=== PATIENT | female | born 1985 | race Caucasian/White ===

== ENCOUNTER 2018-04-30 10:36 | Emergency (ER) | payer SELFPAY ==
[2018-04-30 11:45] LABS: ABS Basophils 0.1 10^3/ul (0-0.2); ABS Eosinophils 0 10^3/ul (0-0.6); ABS Lymphocytes 2.2 10^3/ul (1.0-4.8); ABS Monocytes 0.8 10^3/ul (0-0.8); ABS Neutrophils 6.1 10^3/ul (1.5-7.7); ABS Nucleated RBC 0 10^3/ul; Eosinophil % 0.5 % (0-6); Hematocrit 40 % (35-47); Hemoglobin 13.7 g/dl (12.0-16.0); Mean Corpuscular HGB Conc 35 g/dl (31-36); Mean Corpuscular Hemoglobin 32 pg (27-31); Mean Corpuscular Volume 91 fL (80-97); Mean Platelet Volume 7.9 um3 (7.4-10.4); Nucleated Red Blood Cells % 0.1; Platelet Count 240 10^3/ul (150-450); Red Blood Count 4.34 10^6/ul (4.00-5.40); Red Cell Distribution Width 13 % (10.5-15); White Blood Count 9.2 10^3/ul (3.5-10.8)
[2018-04-30 12:41] LABS: Urine Appearance Cloudy; Urine Blood Negative (Negative); Urine Color Yellow; Urine Ketones Negative (Negative); Urine Protein 1+(30 mg/dL) (Negative); Urine Specific Gravity 1.025 (1.010-1.030); Urine Urobilinogen Negative (Negative)
[2018-04-30] MEDS ORDERED: Divalproex ER TAB(*) 500 MG PO ONE (13:03)
[2018-04-30 18:01] VITALS: BP 111/79
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
--- NOTE | 2018-05-02 07:27 | ED ---
Progress - Progress Note Progress Note: Patient's preliminary urine culture reveals 25-50,000 Enterobacter cloacae. She was started on Macrobid. Final results pending. - Consult/PCP Time Called: 14:10 Course/Dx - Course Course Of Treatment: Ms Frances was found to have an equivocal urine and her mother requested that she be treated for that as she has shown aggressive behavior in the past with urinary tract infections. - Diagnoses Provider Diagnoses: UTI (urinary tract infection), Mood disorder Discharge - Sign-Out/Discharge Documenting (check all that apply): Post-Discharge Follow Up - Discharge Plan Condition: Stable Disposition: HOME Prescriptions: Nitrofurantoin Macrocrystals* [Macrodantin 100 mg*] 100 mg PO BID #6 cap Patient Education Materials: Urinary Tract Infection in Women (ED), Mood Disorders (ED) Referrals: No Primary Care Phys,NOPCP [Primary Care Provider] - - Billing Disposition and Condition Condition: STABLE Disposition: Home
--- NOTE | 2018-05-03 08:13 | ED ---
Progress - Progress Note Progress Note: Patient's preliminary urine culture reveals 25-50,000 Enterobacter cloacae. She was started on Macrobid. Final results pending. UPDATE: The patient's final urine culture reveals sensitivity to Macrobid. No change in treatment at this time. - Consult/PCP Time Called: 14:10 Course/Dx - Course Course Of Treatment: Ms Frances was found to have an equivocal urine and her mother requested that she be treated for that as she has shown aggressive behavior in the past with urinary tract infections. - Diagnoses Provider Diagnoses: UTI (urinary tract infection), Mood disorder Discharge - Sign-Out/Discharge Documenting (check all that apply): Post-Discharge Follow Up - Discharge Plan Condition: Stable Disposition: HOME Prescriptions: Nitrofurantoin Macrocrystals* [Macrodantin 100 mg*] 100 mg PO BID #6 cap Patient Education Materials: Urinary Tract Infection in Women (ED), Mood Disorders (ED) Referrals: No Primary Care Phys,NOPCP [Primary Care Provider] - - Billing Disposition and Condition Condition: STABLE Disposition: Home
== END 2018-04-30 17:15 | disposition home or self-care (01) ==
LOC: ED 10:36
DX: F39 Unspecified mood [affective] disorder (principal); N39.0 Urinary tract infection, site not specified; F79 Unspecified intellectual disabilities
CPT/HCPCS: 36415; 80053; 80164; 80307; 80320; 80329; 81003; 81015; 84443; 84702; 85025; 87077; 87086; 87186; 99284; G0480

== ENCOUNTER 2019-01-05 20:51 | Inpatient (IN) | payer OTHER ==
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
[2019-01-05 21:34] LABS: ABS Basophils 0.1 10^3/ul (0-0.2); ABS Eosinophils 0.1 10^3/ul (0-0.6); ABS Lymphocytes 3.6 10^3/ul (1.0-4.8); ABS Monocytes 0.8 10^3/ul (0-0.8); ABS Neutrophils 4.6 10^3/ul (1.5-7.7); ABS Nucleated RBC 0 10^3/ul; Eosinophil % 1.3 %; Hematocrit 39 % (33-41); Hemoglobin 13.2 g/dL (12.0-16.0); Mean Corpuscular HGB Conc 34 g/dL (31-36); Mean Corpuscular Hemoglobin 31 pg (27-31); Mean Corpuscular Volume 92 fL (80-97); Mean Platelet Volume 7.5 fL (7.4-10.4); Nucleated Red Blood Cells % 0.1; Platelet Count 184 10^3/uL (150-450); Red Blood Count 4.22 10^6 /uL (3.70-4.87); Red Cell Distribution Width 13 % (10.5-15); White Blood Count 9.2 10^3/uL (3.5-10.8)
[2019-01-05 21:43] LABS: Urine Appearance Cloudy; Urine Bacteria 1+ (Absent); Urine Bilirubin Negative (Negative); Urine Blood Negative (Negative); Urine Color Amber; Urine Glucose Negative (Negative); Urine Ketones Trace (Negative); Urine Nitrite Negative (Negative); Urine Protein 2+(100 mg/dL) (Negative); Urine Red Blood Cell Absent (Absent); Urine Squamous Epithelial Cell Present (Absent); Urine Urobilinogen Negative (Negative); Urine White Blood Cell 1+(6-10/hpf) (Absent)
[2019-01-05 21:44] LABS: Barbiturates Urine Screen None Detected (None Detect); Benzodiazepine Urine Screen None Detected (None Detect); Urine Cannabinoids Screen None Detected (None Detect)
[2019-01-05] MEDS ORDERED: Lurasidone(*) 60 MG TAB PO ONE (21:46)
[2019-01-05] MEDS ORDERED: Lurasidone(*) 20 MG TAB PO ONE (21:46)
[2019-01-05 21:53] LABS: ALT 28 U/L (7-52); AST 29 U/L (13-39); Albumin 4.1 g/dL (3.2-5.2); Albumin/Globulin Ratio 1.4 (1-3); Alkaline Phosphatase 39 U/L (34-104); Anion Gap 3 mmol/L (2-11); BUN/Creatinine Ratio 15.1 (8-20); Blood Urea Nitrogen 11 mg/dL (6-24); CO2 Carbon Dioxide 27 mmol/L (22-32); Calcium 9.1 mg/dL (8.6-10.3); Chloride 106 mmol/L (101-111); EGFR African American 111.8 (>60); EGFR Non-African American 92.4 (>60); Globulin 2.9 g/dL (2-4); Glucose 139 mg/dL (70-100); Sodium 136 mmol/L (135-145)
[2019-01-05 21:59] LABS: HCG Pregnancy < 0.60 mIU/mL
[2019-01-05 22:01] LABS: Acetaminophen < 15 mcg/mL; Alcohol < 10 mg/dL (<10); Salicylate < 2.50 mg/dL (<30)
[2019-01-06] MEDS ORDERED: Acetaminophen TAB* 325 MG PO PRN (05:36)
[2019-01-06] MEDS ORDERED: Al Hydrox/Mg Hydrox/Simet LIQ* 30 ML UDC PO PRN (05:36)
[2019-01-06] MEDS ORDERED: Zolpidem TAB* 10 MG PO ONE (06:00)
[2019-01-06] MEDS: Multivitamins/Minerals TAB PO SCH (11:12)
[2019-01-06] MEDS: Divalproex ER TAB(*) 500 MG PO SCH (11:13)
[2019-01-06] MEDS: ETHINYL ESTRADIOL PO SCH (11:15)
[2019-01-06] MEDS: LEVONORGESTREL PO SCH (11:15)
[2019-01-06] MEDS ORDERED: Zolpidem TAB* 10 MG PO SCH (21:00)
[2019-01-06] MEDS: Lurasidone(*) 20 MG TAB PO SCH (21:28)
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
[2019-01-07] MEDS: Divalproex ER TAB(*) 500 MG PO SCH (07:59)
[2019-01-07] MEDS: Multivitamins/Minerals TAB PO SCH (07:59)
[2019-01-07] MEDS: LEVONORGESTREL PO SCH (08:39)
[2019-01-07] MEDS: ETHINYL ESTRADIOL PO SCH (08:39)
--- NOTE | 2019-01-07 13:55 | PN ---
Subjective - Subjective Date of Service: 01/07/19 Service Type: 40078 Hosp care 35 min high complexity Subjective: Met with patient and her parents, Kassy and Harsh, during visiting hours. Parents report Latuda dose has been decreased due to concerns of tremors and drooling. They reports she is rigid with routines at baseline; however, she has been more demanding and agitated. The family recently returned from [place] due to patient's maternal aunt's . Aunt Fabiana was close to Connor and often traveled with the family. Connor is tearful at times during conversation. She endorses difficulty sleeping and states "I don't like night. " She reports having vivid and scary dreams. Kassy reports patient tends to be more irritable during week of menses, which is currently. Connor endorses being more angry with her mother but declines to elaborate. Patient agrees to trial prazosin for sleep/nightmares. She also agrees to obtain blood work in the am. Objective - Appearance Appearance: Obese Dysmorphic Features: Yes Hygiene: Mal-odorous Grooming: Fairly Well Kept - Behavior Psychomotor Activities: Normal Exhibits Abnormal Movement: No - Attitude and Relatedness Attitude and Relatedness: Cooperative Eye Contact: Fair - Speech Quality: Unpressured Latencies: Normal Quantity: Terse - Mood Patient's Decription of Mood: "Anxious" - Affect Observed Affect: Tearful Affect Consistent with: Dysphoria - Thought Process Patient's Thought Process: Coherent, Circumstantial Thought Content: No Passive Wish, No Suicidal Planning, No Homicidal Ideation, No Paranoid Ideation - Sensorium Experiencing Hallucinations: No, Sensorium is Clear Type of Hallucinations: Visual: No, Auditory: No, Command: No - Level of Consciousness Level of Consciousness: Alert Orientation: Yes Intact, Yes Orientated to Time, Yes Orientated to Place, Yes Orientated to Person - Impulse Control Impulse Control: Poor - Insight and Judgement Insight and Judgement: Poor - Group Participation Particating in Group Activities: Yes - Medication Management Medication Management Adherence: Yes Assessment - Assessment Merits Inpatient Hospitalization: For Immediate Safety, For Stabilization Inpatient DSM-V Dx: F31.62 - bipolar I d/o, mixed state Clinical Impression: 33yo wf with history of intellectual disability and bipolar I d/o who presented to ED due to delusional statements, homicidal ideation and aggression in the home. She merits hospitalization for immediate safety and stabilization. Plan - Plan Treatment Plan: Name: CONNOR PANG Birthdate: 1985 [id number] continue acute intensive psychiatric treatment. may decrease to q30min obs and allow staff pass. trial prazosin at bedtime, MARYANN jane. continue other medications. obtain EKG and fasting blood work in AM: va level, hgba1c, lipid panel. obtain EKG. discharge planning to include family and outpatient providers. Continued Medication Management: Start Medication Medications: Current Medications Acetaminophen (Tylenol Tab*) 650 mg PO Q4H PRN PRN Reason: PAIN; OR TEMP >101 Al Hydrox/Mg Hydrox/Simethicone (Maalox Plus*) 30 ml PO Q4H PRN PRN Reason: INDIGESTION Divalproex Sodium (Depakote Er Tab(*)) 1,500 mg PO QAM [facility] Last Admin: 01/07/19 07:59 Dose: 1,500 mg Lurasidone HCl (Latuda) 10 mg PO BEDTIME [facility] Last Admin: 01/06/19 21:28 Dose: 10 mg Multivitamins/Minerals (Theragran/Minerals Tab*) 1 tab PO DAILY [facility] Last Admin: 01/07/19 07:59 Dose: 1 tab Nft: Lessina-28 (Tablet) 1 dose PO DAILY [facility] Last Admin: 01/07/19 08:39 Dose: Not Given prazosin 1mg qhs - Discharge Plan Discharge Plan: Inpatient Hospitalization [facility]
[2019-01-07] MEDS ORDERED: Prazosin CAP* 1 MG PO SCH (21:00)
[2019-01-07] MEDS: Lurasidone(*) 20 MG TAB PO SCH (21:52)
[2019-01-08 08:16] LABS: HDL Cholesterol 30.5 mg/dL
[2019-01-08 08:39] LABS: Free T4 0.61 ng/dL (0.61-1.12)
[2019-01-08] MEDS: LEVONORGESTREL PO SCH (10:09)
[2019-01-08] MEDS: Divalproex ER TAB(*) 500 MG PO SCH (10:09)
[2019-01-08] MEDS: ETHINYL ESTRADIOL PO SCH (10:09)
[2019-01-08] MEDS: Multivitamins/Minerals TAB PO SCH (10:09)
--- NOTE | 2019-01-08 16:43 | PN ---
Subjective - Subjective Date of Service: 01/08/19 Service Type: [id number] Hosp care 25 min moderate complexity Subjective: Patient is euthymic and conversational upon approach. Her bed is very well made and her room is tidy. She offers to show her journal and describes writing about her aunts who have . She endorses anxiety about her parent's mortality and specifically asks "what will happen if they before the longterm?" She reports sleeping well and denies having had bad dreams. According to staff, she slept approx 4 hours. She reports being fearful of "being here forever" and is assured of discharge planning this week. She states she want to leave "monday because I have basketball." Objective - Appearance Appearance: Obese Dysmorphic Features: No Hygiene: Normal Grooming: Well Kept - Behavior Psychomotor Activities: Normal Exhibits Abnormal Movement: No - Attitude and Relatedness Attitude and Relatedness: Cooperative Eye Contact: Good - Speech Quality: Unpressured Latencies: Normal Quantity: Appropriate - Mood Patient's Decription of Mood: "Anxious" - Affect Observed Affect: Good Affect Consistent with: Euthymia - Thought Process Patient's Thought Process: Coherent Thought Content: No Passive Wish, No Suicidal Planning, No Homicidal Ideation, No Paranoid Ideation - Sensorium Experiencing Hallucinations: No, Sensorium is Clear Type of Hallucinations: Visual: No, Auditory: No, Command: No - Level of Consciousness Level of Consciousness: Alert Orientation: Yes Intact, Yes Orientated to Time, Yes Orientated to Place, Yes Orientated to Person - Impulse Control Impulse Control: Intact - Insight and Judgement Insight and Judgement: Fair - Group Participation Particating in Group Activities: Yes - Medication Management Medication Management Adherence: Yes Assessment - Assessment Merits Inpatient Hospitalization: For Immediate Safety, For Stabilization, For Discharge Planning Inpatient DSM-V Dx: F31.62 - bipolar I d/o, mixed state Clinical Impression: 33yo wf with history of intellectual disability and bipolar I d/o who presented to ED due to delusional statements, homicidal ideation and aggression in the home. She merits hospitalization for immediate safety and stabilization. Plan - Plan Treatment Plan: Name: CONNOR PANG Birthdate: 1985 [id number] continue acute intensive psychiatric treatment. may decrease to q30min obs and allow staff pass. trial prazosin at bedtime, MARYANN jane. continue other medications. discharge planning to include family and outpatient providers. Continued Medication Management: Start Medication Medications: Current Medications Acetaminophen (Tylenol Tab*) 650 mg PO Q4H PRN PRN Reason: PAIN; OR TEMP >101 Al Hydrox/Mg Hydrox/Simethicone (Maalox Plus*) 30 ml PO Q4H PRN PRN Reason: INDIGESTION Divalproex Sodium (Depakote Er Tab(*)) 1,500 mg PO QAM [facility] Last Admin: 01/08/19 10:09 Dose: 1,500 mg Lurasidone HCl (Latuda) 10 mg PO BEDTIME DEANNE Last Admin: 01/07/19 21:52 Dose: 10 mg Multivitamins/Minerals (Theragran/Minerals Tab*) 1 tab PO DAILY DEANNE Last Admin: 01/08/19 10:09 Dose: 1 tab Nft: Lessina-28 (Tablet) 1 dose PO DAILY [facility] Last Admin: 01/08/19 10:09 Dose: Not Given Prazosin HCl (Minipress Cap*) 1 mg PO BEDTIME [facility] Last Admin: 01/07/19 21:52 Dose: 1 mg - Discharge Plan Discharge Plan: Inpatient Hospitalization Outpatient Program: [facility]
[2019-01-08] MEDS: Lurasidone(*) 20 MG TAB PO SCH (20:39)
[2019-01-08] MEDS ORDERED: Prazosin CAP* 1 MG PO SCH (21:00)
[2019-01-09 08:18] VITALS: BP 111/66
[2019-01-09] MEDS: Divalproex ER TAB(*) 500 MG PO SCH (09:46)
[2019-01-09] MEDS: Multivitamins/Minerals TAB PO SCH (09:46)
[2019-01-09] MEDS: ETHINYL ESTRADIOL PO SCH (09:47)
[2019-01-09] MEDS: LEVONORGESTREL PO SCH (09:47)
[2019-01-09] MEDS ORDERED: Sulfamethox/Trimethoprim DS 800/160* TAB PO SCH (11:00)
[2019-01-09] MEDS ORDERED: Phenazopyridine TAB* 100 MG PO SCH (14:00)
[2019-01-09] MEDS ORDERED: Lurasidone(*) 20 MG TAB PO SCH (21:00)
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
== END 2019-01-09 13:45 | disposition home or self-care (01) | DRG 753 ==
LOC: ED 20:51 → BSU 01-06 02:35
PROVIDERS: ADMIT Psychiatry & Neurology Psychiatry; ATTEND Psychiatry & Neurology Psychiatry
DX: F31.62 Bipolar disorder, current episode mixed, moderate (principal); F79 Unspecified intellectual disabilities; R45.850 Homicidal ideations; E66.9 Obesity, unspecified; Z78.1 Physical restraint status; Z68.33 Body mass index [BMI] 33.0-33.9, adult
CPT/HCPCS: 36415; 80053; 80061; 80164; 80307; 80320; 80329; 81003; 81015; 83036; 84439; 84443; 84702; 85025; 87086; 99222; 99232; 99233; 99238; 99284; A9270-GY; G0480

== ENCOUNTER 2021-12-22 04:27 | Inpatient (IN) ==
[2021-12-22 05:07] LABS: ABS Eosinophils 0.1 10^3/ul (0-0.6); ABS Lymphocytes 3.3 10^3/ul (1.0-4.8); ABS Monocytes 0.7 10^3/ul (0-0.8); ABS Neutrophils 2.7 10^3/ul (1.5-7.7); Eosinophil % 1.1 %; Hematocrit 42 % (35-47); Hemoglobin 14.2 g/dL (12.0-16.0); Lymphocyte % 48.2 %; Mean Corpuscular HGB Conc 34 g/dL (31-36); Mean Corpuscular Hemoglobin 31 pg (27-31); Mean Corpuscular Volume 91 fL (80-97); Nucleated Red Blood Cells % 0.1; Platelet Count 224 10^3/uL (150-450); Red Blood Count 4.61 10^6 /uL (3.70-4.87); Red Cell Distribution Width 13 % (10-15); White Blood Count 6.8 10^3/uL (3.5-10.8)
[2021-12-22 05:45] LABS: Albumin 4.6 g/dL (3.2-5.2); Anion Gap 6 mmol/L (2-11); CO2 Carbon Dioxide 28 mmol/L (22-32); Calcium 9.6 mg/dL (8.6-10.3); Chloride 105 mmol/L (101-111); Sodium 139 mmol/L (135-145)
[2021-12-22 05:52] LABS: ALT 38 U/L (7-52); AST 31 U/L (13-39); Acetaminophen < 15 mcg/mL; Albumin/Globulin Ratio 1.6 (1-3); Alcohol, S < 13 mg/dL (<13); Alkaline Phosphatase 42 U/L (35-149); Blood Urea Nitrogen 12 mg/dL (6-24); Globulin 2.9 g/dL (2-4); Glucose 104 mg/dL (70-100); Salicylate < 2.50 mg/dL (<30); Total Protein 7.5 g/dL (6.4-8.9); eGFR CKD-EPI 113.6 (>60)
[2021-12-22 06:34] LABS: TSH Ultra Thyroid Stim Horm 5.34 mcIU/mL (0.34-5.60)
[2021-12-22 07:49] LABS: Urine Appearance Clear; Urine Bilirubin Negative (Negative); Urine Blood Negative (Negative); Urine Color Straw; Urine Glucose Negative (Negative); Urine Ketones Negative (Negative); Urine Nitrite Negative (Negative); Urine Protein Negative (Negative); Urine Specific Gravity 1.002 (1.002-1.030); Urine Urobilinogen Negative (Negative)
[2021-12-22 07:55] LABS: Urine Benzodiazepine Screen None Detected (None Detect); Urine Cannabinoids Screen None Detected (None Detect); Urine Opiates Screen None Detected (None Detect)
[2021-12-23] MEDS: Multivitamins/Minerals TAB PO SCH (07:46)
[2021-12-23] MEDS: SRONYX PO SCH (09:32)
[2021-12-24] MEDS: Multivitamins/Minerals TAB PO SCH (09:28)
[2021-12-24] MEDS: SRONYX PO SCH (09:29)
[2021-12-25 08:19] LABS: HDL Cholesterol 36.9 mg/dL
[2021-12-25] MEDS: SRONYX PO SCH (09:30)
[2021-12-25] MEDS: Multivitamins/Minerals TAB PO SCH (09:30)
[2021-12-25] MEDS: Al Hydrox/Mg Hydrox/Simet LIQ 30 ML UDC PO PRN (18:45)
[2021-12-26] MEDS: Multivitamins/Minerals TAB PO SCH (08:32)
[2021-12-26] MEDS: SRONYX PO SCH (08:34)
[2021-12-27] MEDS: Multivitamins/Minerals TAB PO SCH (10:06)
[2021-12-27] MEDS: SRONYX PO SCH (10:06)
[2021-12-28] MEDS: Multivitamins/Minerals TAB PO SCH (10:09)
[2021-12-28] MEDS: SRONYX PO SCH (10:10)
[2021-12-28] MEDS: Al Hydrox/Mg Hydrox/Simet LIQ 30 ML UDC PO PRN (22:25)
[2021-12-29] MEDS: Multivitamins/Minerals TAB PO SCH (09:36)
[2021-12-29] MEDS: SRONYX PO SCH (09:36)
[2021-12-30 08:50] VITALS: BP 104/75
[2021-12-30] MEDS: Multivitamins/Minerals TAB PO SCH (10:19)
[2021-12-30] MEDS: SRONYX PO SCH (10:19)
== END 2021-12-30 13:00 | disposition home or self-care (01) | DRG 885 ==
LOC: ED 04:27 → BSU 17:15
PROVIDERS: ADMIT Psychiatry & Neurology Psychiatry; ATTEND Psychiatry & Neurology Psychiatry

== ENCOUNTER 2024-08-08 18:12 | Observation (INO) ==
[2024-08-08 19:03] LABS: ABS Basophils 0.1 10^3/uL (0.0-0.1); ABS Lymphocytes 1.8 10^3/uL (1.0-4.8); ABS Monocytes 0.8 10^3/uL (0.0-0.9); ABS Neutrophils 6.7 10^3/uL (1.5-7.6); Eosinophil % 0.4 %; Hematocrit 36.6 % (35-45); Hemoglobin 12.7 g/dL (11.5-14.3); Lymphocyte % 19.2 %; Mean Corpuscular Hemoglobin 31.1 pg (27-33); Mean Corpuscular Hgb Conc 34.7 g/dL (31-36); Mean Corpuscular Volume 89.6 fL (80-97); Mean Platelet Volume 7.5 fL (7.5-11.2); Platelet Count 358 10^3/uL (150-450); Red Blood Count 4.08 10^6/uL (3.63-4.92); Red Cell Distribution Width 12.2 % (12-17); White Blood Count 9.4 10^3/uL (3.8-11.8)
[2024-08-08 19:43] LABS: ALT 63 U/L (7-52); AST 34 U/L (13-39); Albumin 4.7 g/dL (3.2-5.2); Alkaline Phosphatase 51 U/L (35-149); Anion Gap 9 mmol/L (2-16); Blood Urea Nitrogen 7 mg/dL (6-24); C Reactive Protein 1.52 mg/L (<8.01); CO2 Carbon Dioxide 27 mmol/L (22-32); Calcium 9.8 mg/dL (8.6-10.3); Chloride 102 mmol/L (101-111); Creatinine, Serum 0.82 mg/dL (0.51-0.95); Globulin 2.4 g/dL (2-4); Glucose 109 mg/dL (70-100); Potassium 3.7 mmol/L (3.5-5.0); Sodium 138 mmol/L (135-145); Total Bilirubin 0.5 mg/dL (0.2-1.0); Total Protein 7.1 g/dL (6.4-8.9); eGFR CKD-EPI 93.8 (>60)
[2024-08-08 19:50] LABS: HCG Pregnancy < 0.60 mIU/mL
[2024-08-08] MEDS: Glycerin ADULT 2.4 gm SUPP PR ONE (19:57)
[2024-08-08] MEDS: Lactated Ringers 1000 ml BAG 1,000 ML IV ONE (20:01)
[2024-08-08 20:04] LABS: Activated Partial Thrombo Time 27.6 seconds (26.0-38.0); INR 1.06 (0.85-1.14)
[2024-08-08 21:09] LABS: High Sensitivity Troponin 1 Hr 10 pg/mL (<15)
[2024-08-08 21:38] LABS: Urine Appearance Clear; Urine Bilirubin Negative (Negative); Urine Blood Negative (Negative); Urine Color Light-Yellow; Urine Glucose Negative (Negative); Urine Ketones 1+ (Negative); Urine Nitrite Negative (Negative); Urine Protein Trace (Negative); Urine Specific Gravity 1.021 (1.002-1.030); Urine Urobilinogen Negative (Negative)
[2024-08-08] MEDS: Piperacillin/Tazobac 3.375 BAG 3.375 GM/100 ML BAG IV ONE (22:48)
[2024-08-09] MEDS: Enoxaparin 40 MG/0.4 ML SYR SUBCUT SCH (00:31)
[2024-08-09] MEDS: cefTRIAXone 1 gm/50 mL D5W 1 GM/50 ML BAG IV SCH ×2 (01:52→11:12)
[2024-08-09] MEDS: Haloperidol 5 mg/ml SDV IV/IM 5 MG/ML AMP IV SLOW PU ONE ×2 (01:55→02:42)
[2024-08-09] MEDS ORDERED: Enoxaparin 40 MG/0.4 ML SYR SUBCUT SCH (02:00)
[2024-08-09] MEDS ORDERED: metroNIDAZOLE IV 500 MG/100ML 500 MG/100 ML BAG IVPB SCH (02:00)
[2024-08-09] MEDS ORDERED: Haloperidol 5 mg/ml SDV IV/IM 5 MG/ML AMP ONE (02:37)
[2024-08-09] MEDS: metroNIDAZOLE IV 500 MG/100ML 500 MG/100 ML BAG IVPB SCH (10:17)
[2024-08-09] MEDS: LEVONORGESTREL ETHINYL ESTRAD PO SCH (10:17)
[2024-08-09] MEDS: OLANZAPINE SAMIDORPHAN PO SCH ×2 (10:18→20:50)
[2024-08-09] MEDS: Senna TAB 8.6 mg TAB PO SCH (13:11)
[2024-08-09] MEDS: Iohexol 350 (CONTRAST) 500 ML MDV IV ONE (14:10)
[2024-08-10] MEDS ORDERED: Lorazepam PYXIS KEY PRN ×2 (02:53→21:20)
[2024-08-10] MEDS: LORazepam 2 mg VIAL 1 ml IV PUSH ONE ×2 (03:14→21:48)
[2024-08-10] MEDS: Polyethylene Glycol 3350 17 GM PACKET PO PRN (21:46)
[2024-08-12] MEDS: Polyethylene Glycol 3350 17 GM PACKET PO SCH (10:46)
[2024-08-12] MEDS: Ondansetron ODT 4 mg TAB 4 MG TAB SL PRN (11:13)
[2024-08-12 15:40] LABS: ABS Basophils 0.1 10^3/uL (0.0-0.1); ABS Eosinophils 0.1 10^3/uL (0.0-0.5); ABS Lymphocytes 2.1 10^3/uL (1.0-4.8); ABS Monocytes 0.7 10^3/uL (0.0-0.9); ABS Neutrophils 4.4 10^3/uL (1.5-7.6); Eosinophil % 1.8 %; Hematocrit 37.7 % (35-45); Hemoglobin 12.8 g/dL (11.5-14.3); Lymphocyte % 28.8 %; Mean Corpuscular Hemoglobin 30.6 pg (27-33); Mean Corpuscular Volume 90.2 fL (80-97); Mean Platelet Volume 7.6 fL (7.5-11.2); Nucleated Red Blood Cells % 0.1 %/100WBC (0.0-0.8); Platelet Count 328 10^3/uL (150-450); Red Blood Count 4.18 10^6/uL (3.63-4.92); Red Cell Distribution Width 11.9 % (12-17); White Blood Count 7.4 10^3/uL (3.8-11.8)
[2024-08-12 16:22] LABS: Calcium 9.9 mg/dL (8.6-10.3); Potassium 4.2 mmol/L (3.5-5.0)
[2024-08-12 17:56] LABS: Creatinine, Serum 0.61 mg/dL (0.51-0.95); eGFR CKD-EPI 117.3 (>60)
[2024-08-13 09:30] VITALS: BP 148/105
== END 2024-08-13 14:20 | disposition home or self-care (01) ==
LOC: ED 18:12 → EDHOLD 18:12 → SUATTDRO 23:17 → MED 08-09 08:06
PROVIDERS: ADMIT Internal Medicine; ATTEND Student in an Organized Health Care Education/Training Program